=== PATIENT | female | born 2000 | race Caucasian/White ===

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

== ENCOUNTER 2022-06-10 13:25 | Emergency (ER) | payer OTHER, SELFPAY ==
[2022-06-10] VITALS (7 sets, daily range): BP systolic 116–135; BP diastolic 72–90; PULSE 81–90; RESP 16; TEMP 36.6; O2SAT 99–100; BMI 22.4
[2022-06-10] MEDS: sodium chloride 0.9% 1,000 ML 999 ML IV (15:15)
[2022-06-10] MEDS: ondansetron 2 mg/ML SDV 2 mL 4 MG IVP (15:15)
--- NOTE | 2022-06-10 15:29 | W.ED.ABDPA2 ---
HPI - Abdominal Pain General: Chief Complaint: Abdominal Pain Stated Complaint: ETOH Time Seen by Provider: 06/10/22 14:58 Source: patient and family Mode of arrival: ambulatory Limitations: no limitations History of Present Illness: See nursing assessment. Patient with onset of nausea vomiting since 9:00 this morning. She states she was unable to hold fluid down. She is also complaining of bilious emesis and epigastric abdominal pain. She states she felt warm and had some chills. She states she drank alcohol last night and had [employer] food last night she denies any other infectious exposures. She denies any diarrhea. She denies any blood in her stool or melena. She denies any previous abdominal surgeries. She does smoke cigarettes and drinks alcohol socially. She denies any routine medications and no past medical history. She is allergic to sulfa. Associated Symptoms: Reports chills, nausea and vomiting; Denies diarrhea, fever(s), hematochezia and hematemesis Related Data: Date of Last Menstrual Period: 03/10/20 Review of Systems Const: Reports: chills; Denies: fever(s) Eyes: Denies: change in vision ENMT: Denies: throat pain Card: Denies: chest pain or palpitations Resp: Denies: dyspnea or wheezing GI: Reports: abdominal pain, nausea and vomiting; Denies: hematemesis, diarrhea or hematochezia : Denies: flank pain Musc: Denies: neck pain or back pain Skin/Breast: Denies: rash or pruritus Neuro: Denies: headache(s) or numbness in extremities Psych: Denies: anxiety Giorgio/Lymph: Denies: enlarged lymph nodes [facility] ED PFSH: Medical History No pertinent past medical history Social History Smoking and tobacco status: current every day smoker e-cigarettes Alcohol intake: current Alcohol intake frequency: holidays/special occasions only Female Reproductive History: Date of last menstrual period: 03/10/20 Supplemental [facility] Information: Denies any surgical history. Physical Exam Const: COMMON NORMALS: patient oriented x3, no limitations and well nourished GENERAL APPEARANCE: cooperative OTHER: Mild malaise HENMT: COMMON NORMALS: normocephalic and atraumatic HEAD & SCALP: normocephalic and atraumatic FACE & SINUS: normal facial exam Eye: COMMON NORMALS: EOMs intact bilaterally Neck/C-Spine: COMMON NORMALS: full ROM, no lymphadenopathy, supple and no meningeal signs GENERAL: Yes normal visual inspection Lymph: LYMPHATIC: no lymphadenopathy noted Chest: COMMONS NORMALS: normal inspection of the chest and normal palpation of entire chest wall CHEST: No Ecchymosis present and No rash Resp: COMMON NORMALS: normal respiratory effort, No retractions and clear to auscultation bilaterally EFFORT & INSPECTION: No respiratory distress AUSCULTATION: clear to auscultation bilaterally Cardio: COMMON NORMALS: regular rate, regular rhythm and Peripheral pulses 2+ throughout JUGULAR VENOUS DISTENTION: no JVD RATE: regular rate RHYTHM: regular rhythm PERIPHERAL PULSES: Peripheral pulses 2+ throughout GI: COMMON NORMALS: Normal to inspection, nondistended, normoactive bowel sounds present OTHER: Mild epigastric abdominal pain. No guarding or rebound. Normoactive bowel sounds throughout. No hepatosplenomegaly. Negative Condon sign. No lower abdominal pain. : COMMON NORMALS: Yes no CVA tenderness BLADDER/KIDNEY EXAM: Yes no CVA tenderness Back/Pelvis: COMMON NORMALS: no CVA tenderness Extremity: COMMON NORMALS: normal to inspection, full ROM and capillary refill normal Neuro: COMMON NORMALS: patient oriented x3, CN's II-XII intact bilaterally, no focal motor deficits and no sensory deficits noted MENINGEAL SIGNS: Yes no meningeal signs Psych: COMMON NORMALS: mental status grossly normal and Normal thought process present THOUGHT PROCESS: Normal thought process present Skin: COMMON NORMALS: no rashes or lesions noted and no wounds GENERAL SKIN EXAM: no rashes or lesions noted Course Vital Signs: Vital signs: Vital Signs Temperature 97.9 F 06/10/22 13:33 Pulse Rate 90 06/10/22 15:43 Respiratory Rate 16 06/10/22 15:43 Blood Pressure 135/72 06/10/22 15:30 Pulse Oximetry 99 06/10/22 16:00 Oxygen Delivery Me thod 06/10/22 15:43 MDM - Abdominal Pain Medical Decision Making Likely gastritis due to alcohol use. Patient may have viral gastroenteritis. 1700: Patient reexamined. Patient states she feels much better. She states she is ready go home. Patient likely with acute superficial gastritis. Lab Data 06/10/22 15:38 06/10/22 15:38 Labs/Radiology: Laboratory Results WBC 11.6 10^3/uL (4.0-10.0) H 06/10/22 15:38 RBC 5.27 10^6/uL (4.1-5.3) 06/10/22 15:38 Hgb 13.9 g/dL (11.5-15.3) 06/10/22 15:38 Hct 42.4 % (37.0-47.0) 06/10/22 15:38 MCV 80.5 fl (81-99) L 06/10/22 15:38 MCH 26.4 pg (28.0-34.0) L 06/10/22 15:38 MCHC 32.8 g/dL (30.0-36.0) 06/10/22 15:38 RDW 14.6 % (12.1-15.1) 06/10/22 15:38 Plt Count 404 10^3/cmm (130-400) H 06/10/22 15:38 MPV 9.4 fL (7.4-10.4) 06/10/22 15:38 Neut % (Auto) 91.5 % 06/10/22 15:38 Lymph % (Auto) 5.3 % 06/10/22 15:38 [place] % (Auto) 2.7 % 06/10/22 15:38 Eos % (Auto) 0.0 % 06/10/22 15:38 Baso % (Auto) 0.2 % 06/10/22 15:38 Neut # (Auto) 10.65 10^3/uL (1.8-7.7) H 06/10/22 15:38 Lymph # (Auto) 0.6 10^3/uL (0.8-4.8) L 06/10/22 15:38 [place] # (Auto) 0.3 10^3/uL (0.2-0.9) 06/10/22 15:38 Eos # (Auto) 0.0 10^3/uL (0.0-0.8) 06/10/22 15:38 Baso # (Auto) 0.0 10^3/uL (0.0-0.1) 06/10/22 15:38 Nucleated RBC % (auto) 0 % 06/10/22 15:38 Nucleated RBCs # 0.0 /100WBC 06/10/22 15:38 Sodium 139 mmol/L (136-145) 06/10/22 15:38 Potassium 3.6 mmol/L (3.5-5.1) 06/10/22 15:38 Chloride 103 mmol/L (98-107) 06/10/22 15:38 Carbon Dioxide 23 mmol/L (22-29) 06/10/22 15:38 Anion Gap 16.6 (5-19) 06/10/22 15:38 BUN 10 mg/dL (6-20) 06/10/22 15:38 Creatinine 0.6 mg/dL (0.5-0.9) 06/10/22 15:38 GFR Calculation 126.2 mL/min (90-130) 06/10/22 15:38 Glucose 90 mg/dL (65-115) 06/10/22 15:38 Calculated Osmolality 287 mOsm/kg (285-295) 06/10/22 15:38 Calcium 9.0 mg/dL (8.5-10.5) 06/10/22 15:38 Total Bilirubin 0.5 mg/dL (0.15-1.2) 06/10/22 15:38 AST 27 U/L (0-32) 06/10/22 15:38 ALT 24 U/L (0-33) 06/10/22 15:38 Alkaline Phosphatase 93 U/L (35-105) 06/10/22 15:38 Total Protein 7.6 g/dL (6.6-8.7) 06/10/22 15:38 Albumin 4.5 g/dL (3.5-5.2) 06/10/22 15:38 Globulin 3.1 g/dL (1.3-4.6) 06/10/22 15:38 Lipase 16 U/L (13-60) 06/10/22 15:38 HCG, Qual Negative (Negative) 06/10/22 15:38 Urine Color Yellow (Yellow) 06/10/22 16:13 Urine Appearance Hazy (CLEAR) A 06/10/22 16:13 Urine pH 9 (5-7) H 06/10/22 16:13 Ur Specific [place] 1.010 (1.005-1.030) 06/10/22 16:13 Urine Protein Neg (Negative) 06/10/22 16:13 Urine Glucose (UA) Norm (Normal) 06/10/22 16:13 Urine Ketones 2+ (Negative) H 06/10/22 16:13 Urine Blood 3+ (Negative) H 06/10/22 16:13 Urine Nitrate Negative (Negative) 06/10/22 16:13 Urine Bilirubin Neg (Negative) 06/10/22 16:13 Prot Sulfosalicylic Acd Negative (Negative) 06/10/22 16:13 Urine Urobilinogen Neg mg/dL (Negative) 06/10/22 16:13 Ur Leukocyte Esterase Trace (Negative) H 06/10/22 16:13 Urine RBC Rare /hpf (0-2) 06/10/22 16:13 Urine WBC Rare /hpf (0-5) 06/10/22 16:13 Ur Squamous Epith Cells 10-15 /hpf (0-5) H 06/10/22 16:13 Amorphous Sediment Not Reportable 06/10/22 16:13 Urine Bacteria Trace /hpf (NONE) 06/10/22 16:13 Discharge Plan Discharge Patient Disposition: Home Clinical Impression: Acute gastritis without bleeding Qualifiers: Gastritis type: superficial Qualified Code(s): K29.00 - Acute gastritis without bleeding Nausea & vomiting Qualifiers: Vomiting type: bilious vomiting Qualified Code(s): R11.14 - Bilious vomiting Condition: Stable Prescriptions: New omeprazole 40 mg capsule,delayed release(DR/EC) 40 mg PO DAILY Qty: 4 1RF Rx Instructions: For stomach Carafate 1 gram tablet 1 g PO Q6H Qty: 12 2RF Rx Instructions: for stomach ondansetron 4 mg tablet,disintegrating 4 mg PO Q6H PRN (Reason: nausea and vomiting) Qty: 10 1RF Discharge Orders: Discharge ED (Routine); Ordered 06/10/22 Ordered By: Franco Grier Referrals: Niharika Dong, COMMERCIAL CARPENTER [Primary Care Provider] - 1-3 days (as needed) Discharge Diet: Advance as tolerated Discharge Activity: Increase activity as tolerated Patient Instructions: Gastritis (ED), Diet for Stomach Ulcers and Gastritis (ED), Acute Nausea and Vomiting (ED) Activity Restrictions/Additional Instructions: Drink plenty of fluids. Avoid caffeine. Avoid aspirin, naproxen, ibuprofen for least 1 week. Avoid alcohol use. You likely have irritation of the lining of your stomach. Take medication as prescribed. Coding Level of Care Code ED Drum Tester for Nancy Mcpherson
[2022-06-10] MEDS: pantoprazole 40 mg SDV IVP (15:42)
[2022-06-10 15:50] LABS: Basophils % 0.2 %; Hematocrit 42.4 % (37.0-47.0); Hemoglobin 13.9 g/dL (11.5-15.3); Lymphocytes # 0.6 10^3/uL (0.8-4.8); Lymphocytes % 5.3 %; Mean Corpuscular HGB Conc 32.8 g/dL (30.0-36.0); Mean Corpuscular Hemoglobin 26.4 pg (28.0-34.0); Mean Corpuscular Volume 80.5 fl (81-99); Mean Platelet Volume 9.4 fL (7.4-10.4); Monocytes # 0.3 10^3/uL (0.2-0.9); Monocytes % 2.7 %; Neutrophils # 10.65 10^3/uL (1.8-7.7); Neutrophils % 91.5 %; Nucleated Red Blood Cells % 0 %; Platelet Count 404 10^3/cmm (130-400); Red Blood Count 5.27 10^6/uL (4.1-5.3); Red Cell Distribution Width 14.6 % (12.1-15.1); White Blood Count 11.6 10^3/uL (4.0-10.0)
[2022-06-10 16:15] LABS: Alanine Aminotransferase 24 U/L (0-33); Albumin Level 4.5 g/dL (3.5-5.2); Alkaline Phosphatase 93 U/L (35-105); Anion Gap 16.6 (5-19); Aspartate Amino Transferase 27 U/L (0-32); Blood Urea Nitrogen 10 mg/dL (6-20); Carbon Dioxide 23 mmol/L (22-29); Chloride 103 mmol/L (98-107); Globulin 3.1 g/dL (1.3-4.6); Glomerular Filtration Rate 126.2 mL/min (90-130); Glucose 90 mg/dL (65-115); Lipase 16 U/L (13-60); Osmolality Calculated 287 mOsm/kg (285-295); Potassium 3.6 mmol/L (3.5-5.1); Sodium 139 mmol/L (136-145); Total Bilirubin 0.5 mg/dL (0.15-1.2); Total Protein 7.6 g/dL (6.6-8.7)
[2022-06-10 16:36] LABS: HCG, Serum Qual Negative (Negative)
[2022-06-10 16:59] LABS: Urine Appearance Hazy (CLEAR); Urine Color Yellow (Yellow); pH Urine 9 (5-7)
[2022-06-10 17:00] LABS: Bacteria Urine TRACE /hpf; Bilirubin Urine Neg (Negative); Blood Urine 3+ (Negative); Glucose Urine UA Norm (Normal); Ketones Urine 2+ (Negative); Leukocyte Esterase Urine Trace (Negative); Nitrate Urine Negative (Negative); Protein Urine Neg (Negative); RBC Urine RARE /hpf (0-2); Sulfosalicylic Acid Urine Negative (Negative); Urobilinogen Urine Neg (Negative); WBC Urine RARE /hpf (0-5)
== END 2022-06-10 17:31 | disposition home or self-care (01) ==
PROVIDERS: Emergency Provider Family Medicine; PCP Nurse Practitioner
DX: K29.00 Acute gastritis without bleeding (principal); F17.290 Nicotine dependence, other tobacco product, uncomplicated
CPT/HCPCS: 36415; 80053; 81001; 83690; 84703; 85025; 96361; 96374; 96375; 99284; C9113; J2405; J7030

== ENCOUNTER 2024-06-09 22:18 | Emergency (ER) | payer SELFPAY ==
[2024-06-09 22:23] VITALS: BP 130/81; PULSE 88; RESP 18; TEMP 36.7; O2SAT 96; BMI 25.0
--- NOTE | 2024-06-09 23:27 | W.ED.NAVMDI ---
HPI - Nausea/Vomiting/Diarrhea General: Chief complaint: Nausea/Vomiting/Diarrhea Stated complaint: N/V weak SOB Time Seen by Provider: 06/09/24 23:26 History of Present Illness: 24-year-old female who is vomiting diarrhea is for couple days now. Apparently she had a tooth pulled as well. She is feeling weak. No focal abdominal pain. Related Data Previous Rx's ?Medication ?Instructions ?Recorded omeprazole 40 mg capsule,delayed 40 mg PO DAILY #4 caps 06/10/22 release ondansetron 4 mg disintegrating 4 mg PO Q6H PRN nausea and 06/10/22 tablet vomiting #10 tabs sucralfate 1 gram tablet (Carafate) 1 g PO Q6H #12 tabs 06/10/22 ondansetron 8 mg disintegrating 8 mg PO Q6H #14 tabs 06/10/24 tablet promethazine 25 mg rectal 25 mg RI Q6H PRN nausea and 06/10/24 suppository vomiting #12 ea Allergies Allergy/AdvReac Type Severity Reaction Status Date / Time latex Allergy SWELLING Verified 06/10/22 16:20 Sulfa (Sulfonamide Allergy RASH Verified 06/10/22 16:20 Antibiotics) Review of Systems Narrative: Constitutional symptoms: Negative except as documented in HPI. Skin symptoms: Negative except as documented in HPI. Eye symptoms: Negative except as documented in HPI. ENMT symptoms: Negative except as documented in HPI. Respiratory symptoms: Negative except as documented in HPI. Cardiovascular symptoms: Negative except as documented in HPI. Gastrointestinal symptoms: Negative except as documented in HPI. Genitourinary symptoms: Negative except as documented in HPI. Musculoskeletal symptoms: Negative except as documented in HPI. Neurologic symptoms: Negative except as documented in HPI. Psychiatric symptoms: Negative except as documented in HPI. Endocrine symptoms: Negative except as documented in HPI. PFSH ED PFSH: Medical History No pertinent past medical history Social History Smoking and tobacco/nicotine status: current every day tobacco/nicotine user e-cigarettes Alcohol intake: current Alcohol intake frequency: holidays/special occasions only Substance/Drug Use: current Substance/Drug use frequency: daily Female Reproductive History: Date of last menstrual period: 06/08/24 Physical Exam Narrative: EXAM NARRATIVE: General: Alert, no acute distress. Skin: Warm, dry. Head: Normocephalic, atraumatic. Neck: Supple, trachea midline. Eye: Extraocular movements are intact. Ears, nose, mouth and throat: Dry oral mucosa Cardiovascular: Regular, Normal peripheral perfusion. Respiratory: Lungs are clear to auscultation, respirations are non-labored, breath sounds are equal, Symmetrical chest wall expansion. Gastrointestinal: Soft, Nontender, Non distended Musculoskeletal: Normal ROM, no deformity. Neurological: Alert and oriented, No focal neurological deficit observed. Psychiatric: Cooperative, appropriate mood & affect. Course Vital Signs: Vital signs: Vital Signs Temperature 98.0 F 06/09/24 22:23 Pulse Rate 81 06/10/24 01:42 Respiratory Rate 18 06/09/24 22:23 Blood Pressure 122/65 06/10/24 01:42 Pulse Oximetry 99 06/10/24 01:42 Oxygen Delivery Me thod Room Air 06/09/24 22:23 MDM - Nausea/Vomiting/Diarrhea Medical Decision Making Medical decision making: Differential diagnosis for this patient with nausea and vomiting including but not limited to and based on the above HPI, review of systems and physical exam: Urinary tract infection. Appendicitis. Cholecystis. colitis. small bowel obstruction. crohn's flare. pancreatitis. gastritis. peptic ulcer. cyclic vomiting. Viral illness. Influenza. COVID. Orders placed to evaluate differential diagnosis based on the above differential, HPI and physical exam Lab Review: Laboratory results were reviewed and interpreted by myself the emergency room physician. Lab work is unremarkable. No leukocytosis. No anemia. No renal failure. Patient declines COVID and flu swab. I reviewed the patient's medical record. Reexamination: Patient is now tolerating p.o. fluids. Has taken 2 doses of IV Zofran here. Also fluids. Assessment and plan: Gastroenteritis Dehydration ? Normal saline bolus and 2 doses of Zofran. - Discharged home - Discussed plan with patient. Answered any questions. - Evaluation and treatment of this problem were appropriate in the emergency setting. Lab Data 06/09/24 23:43 06/09/24 23:43 Laboratory Results WBC 7.32 10^3/uL (3.29-11.43) 06/09/24 23:43 RBC 5.16 10^6/uL (3.85-5.65) 06/09/24 23:43 Hgb 13.80 g/dL (11.27-16.99) 06/09/24 23:43 Hct 41.7 % (36-47) 06/09/24 23:43 MCV 80.8 fl (85-98) L 06/09/24 23:43 MCH 26.7 pg (27-33) L 06/09/24 23:43 MCHC 33.1 g/dL (30-55) 06/09/24 23:43 RDW 13.9 % (12.1-15.1) 06/09/24 23:43 Plt Count 339 10^3/cmm (157-399) 06/09/24 23:43 MPV 9.3 fL (7.4-10.4) 06/09/24 23:43 Neut % (Auto) 87.3 % 06/09/24 23:43 Lymph % (Auto) 4.8 % 06/09/24 23:43 [place] % (Auto) 6.7 % 06/09/24 23:43 Eos % (Auto) 0.5 % 06/09/24 23:43 Baso % (Auto) 0.3 % 06/09/24 23:43 Neut # (Auto) 6.39 10^3/uL (1.8-7.7) 06/09/24 23:43 Lymph # (Auto) 0.4 10^3/uL (0.8-4.8) L 06/09/24 23:43 [place] # (Auto) 0.5 10^3/uL (0.2-0.9) 06/09/24 23:43 Eos # (Auto) 0.0 10^3/uL (0.0-0.8) 06/09/24 23:43 Baso # (Auto) 0.0 10^3/uL (0.0-0.1) 06/09/24 23: Nucleated RBC % (auto) 0 % 06/09/24 23: Nucleated RBCs # 0.0 /100WBC 06/09/24 23:43 Sodium 139 mmol/L (136-145) 06/09/24 23:43 Potassium 3.5 mmol/L (3.5-5.1) 06/09/24 23:43 Chloride 97 mmol/L (98-107) L 06/09/24 23:43 Carbon Dioxide 22 mmol/L (22-29) 06/09/24 23:43 Anion Gap 23.5 (5-19) H 06/09/24 23:43 BUN 8 mg/dL (6-20) 06/09/24 23:43 Creatinine 0.8 mg/dL (0.5-0.9) 06/09/24 23:43 GFR Calculation 88.9 mL/min (90-130) L 06/09/24 23:43 Glucose 150 mg/dL (65-115) H 06/09/24 23:43 Calculated Osmolality 289 mOsm/kg (285-295) 06/09/24 23:43 Calcium 9.2 mg/dL (8.5-10.5) 06/09/24 23:43 Lipase 17 U/L (13-60) 06/09/24 23:43 No radiology studies performed this visit Discharge Plan Discharge Patient Disposition: Home Clinical Impression: Gastroenteritis, Dehydration Condition: Stable Prescriptions: New promethazine 25 mg suppository 25 mg RI Q6H PRN (Reason: nausea and vomiting) Qty: 12 0RF ondansetron 8 mg tablet,disintegrating 8 mg PO Q6H Qty: 14 0RF Rx Instructions: Take 1/2-1 tab every 6 hours as needed for nausea and vomiting No Action omeprazole 40 mg capsule,delayed release(DR/EC) 40 mg PO DAILY Qty: 4 1RF Rx Instructions: For stomach Carafate 1 gram tablet 1 g PO Q6H Qty: 12 2RF Rx Instructions: for stomach ondansetron 4 mg tablet,disintegrating 4 mg PO Q6H PRN (Reason: nausea and vomiting) Qty: 10 1RF Discharge Orders: Discharge ED (Routine); Ordered 06/10/24 Ordered By: Sonia Crowley Referrals: Niharika Dong, [employer] [Primary Care Provider] - Discharge Diet: Advance as tolerated Discharge Activity: Increase activity as tolerated Patient Instructions: Gastroenteritis (ED), Opioid Safety, Pain Management Activity Restrictions/Additional Instructions: Thank you for choosing [facility] for your healthcare needs today. Please realize this is an emergency room and that we are providing you with a medical screening exam and this may not be complete and all inclusive of all the testing and or work up that you may need to determine your ailment or severity of your illness. You have been screened and evaluated and felt safe for discharge. Health conditions do change or evolve sometimes and as such it is important that you follow up with your Primary Doctor to be re checked, 3-5 days is a general good time frame for follow up. You are always welcome to return to the ED for re assessment if your symptoms are worsening or you have new concerns Print Language: Lithuanian Coding Level of Care Code ED Audience Coordinator for Nancy Mcpherson
[2024-06-09 23:55] LABS: Basophils % 0.3 %; Eosinophils % 0.5 %; Hematocrit 41.7 % (36-47); Lymphocytes # 0.4 10^3/uL (0.8-4.8); Lymphocytes % 4.8 %; Mean Corpuscular HGB Conc 33.1 g/dL (30-55); Mean Corpuscular Hemoglobin 26.7 pg (27-33); Mean Corpuscular Volume 80.8 fl (85-98); Mean Platelet Volume 9.3 fL (7.4-10.4); Monocytes # 0.5 10^3/uL (0.2-0.9); Monocytes % 6.7 %; Neutrophils # 6.39 10^3/uL (1.8-7.7); Neutrophils % 87.3 %; Nucleated Red Blood Cells % 0 %; Platelet Count 339 10^3/cmm (157-399); Red Blood Count 5.16 10^6/uL (3.85-5.65); Red Cell Distribution Width 13.9 % (12.1-15.1); White Blood Count 7.32 10^3/uL (3.29-11.43)
[2024-06-10 00:17] LABS: Anion Gap 23.5 (5-19); Blood Urea Nitrogen 8 mg/dL (6-20); Calcium 9.2 mg/dL (8.5-10.5); Carbon Dioxide 22 mmol/L (22-29); Chloride 97 mmol/L (98-107); Creatinine Clr Calc Pharmacy 106.0379; Glomerular Filtration Rate 88.9 mL/min (90-130); Glucose 150 mg/dL (65-115); Lipase 17 U/L (13-60); Osmolality Calculated 289 mOsm/kg (285-295); Potassium 3.5 mmol/L (3.5-5.1); Sodium 139 mmol/L (136-145)
[2024-06-10] MEDS: ondansetron 2 mg/ML SDV 2 mL 8 MG IVP (00:35)
[2024-06-10] MEDS: sodium chloride 0.9% 1,000 ML 999 ML IV (00:35)
[2024-06-10 00:51] VITALS: PULSE 56; O2SAT 92
[2024-06-10] MEDS: ondansetron 2 mg/ML SDV 2 mL 4 MG IVP (01:33)
[2024-06-10 01:42] VITALS: BP 122/65; PULSE 81; O2SAT 99
== END 2024-06-10 01:39 | disposition home or self-care (01) ==
PROVIDERS: Emergency Provider Emergency Medicine; PCP Nurse Practitioner
DX: K52.9 Noninfective gastroenteritis and colitis, unspecified (principal); E86.0 Dehydration; F17.290 Nicotine dependence, other tobacco product, uncomplicated
CPT/HCPCS: 36415; 80048; 83690; 85025; 96361; 96374; 96376; 99284; J2405; J7030

== ENCOUNTER 2024-06-10 20:16 | Emergency (ER) | payer SELFPAY ==
[2024-06-10] VITALS (8 sets, daily range): BP systolic 98–143; BP diastolic 58–87; PULSE 52–120; RESP 16–17; TEMP 36.4; O2SAT 93–96; BMI 25.0
--- NOTE | 2024-06-10 21:38 | W.ED.NAVMDI ---
HPI - Nausea/Vomiting/Diarrhea General: Chief complaint: Nausea/Vomiting/Diarrhea Stated complaint: puking Blood now Time Seen by Provider: 06/10/24 21:18 Source: patient Mode of arrival: ambulatory Limitations: no limitations History of Present Illness: Patient is a 24-year-old female presents to ED today with a complaint of continued nausea and vomiting. Patient states she initially began having symptoms on Thursday. She was seen yesterday here in the emergency department and given antiemetics to go home with. She states these are not working and she cannot even hold down water without vomiting. At the beginning of her illness she did have some diarrhea Corinne but has not had any today. She is not running fevers. She is not having any abdominal pain. She denies alcohol use or large amounts of anti-inflammatory use. She does smoke marijuana daily but has not over the past few days due to symptoms. MD elicited complaint: nausea and vomiting Onset (ago): day(s) Associated nausea: Yes Associated abdominal pain: No Location of pain: None Exacerbating factors: eating Associated symtoms: Reports nausea; Denies chest pain, dizziness, dysuria, fatigue, headache(s) or malaise Related Data Previous Rx's ?Medication ?Instructions ?Recorded omeprazole 40 mg capsule,delayed 40 mg PO DAILY #4 caps 06/10/22 release sucralfate 1 gram tablet (Carafate) 1 g PO Q6H #12 tabs 06/10/22 lorazepam 1 mg tablet (Ativan) 1 mg PO Q12H PRN nausea and 06/10/24 vomiting #10 tabs olanzapine 5 mg tablet (Zyprexa) 5 mg PO DAILY PRN nausea/vomiting 06/10/24 #5 tabs Allergies Allergy/AdvReac Type Severity Reaction Status Date / Time latex Allergy SWELLING Verified 06/10/22 16:20 Sulfa (Sulfonamide Allergy RASH Verified 06/10/22 16:20 Antibiotics) Review of Systems Const: Denies: fever(s), chills, body aches, fatigue or malaise Card: Denies: chest pain Resp: Denies: dyspnea GI: Reports: nausea and vomiting; Denies: abdominal pain, hematemesis or diarrhea : Denies: flank pain, difficulty voiding, dysuria, urinary frequency, urinary urgency or urinary hesitancy Musc: Denies: neck pain, back pain, extremity pain, joint swelling or joint redness Skin/Breast: Denies: rash Neuro: Denies: headache(s), numbness in extremities, weakness in extremities, sensory changes or dizziness PFSH ED PFSH: Medical History No pertinent past medical history Social History Smoking and tobacco/nicotine status: current every day tobacco/nicotine user e-cigarettes Alcohol intake: current Alcohol intake frequency: holidays/special occasions only Substance/Drug Use: current Substance/Drug use frequency: daily Physical Exam Const: COMMON NORMALS: no acute distress, average body habitus, patient oriented x3, no limitations, healthy appearing, alert and well nourished GENERAL APPEARANCE: cooperative and anxious Eye: COMMON NORMALS: no scleral icterus Resp: COMMON NORMALS: normal respiratory effort and clear to auscultation bilaterally AUSCULTATION: clear to auscultation bilaterally Cardio: COMMON NORMALS: regular rate and regular rhythm RATE: regular rate RHYTHM: regular rhythm GI: COMMON NORMALS: Normal to inspection, nondistended, normoactive bowel sounds present, Soft to palpation, non-tender, No hepatosplenomegaly present and no masses PALPATION: Yes Soft to palpation and Yes No hepatosplenomegaly present : COMMON NORMALS: Yes no CVA tenderness BLADDER/KIDNEY EXAM: Yes no CVA tenderness Back/Pelvis: COMMON NORMALS: no CVA tenderness Neuro: COMMON NORMALS: patient oriented x3 SENSORIUM/ORIENTATION: Yes alert Course Vital Signs: Vital signs: Vital Signs Temperature 97.6 F 06/10/24 20:23 Pulse Rate 70 06/10/24 23:18 Respiratory Rate 16 06/10/24 20:23 Blood Pressure 114/71 06/10/24 23:18 Pulse Oximetry 95 06/10/24 23:15 Oxygen Delivery Me thod Room Air 06/10/24 20:23 MDM - Nausea/Vomiting/Diarrhea Medical Decision Making Patient here for continued nausea and vomiting. She has been trying oral promethazine and Zofran as well as promethazine suppositories all without any relief of her symptoms. She was initially given IV Zofran here without much relief. She failed oral challenge. There is some concern for possible hyperemesis cannabis syndrome/cannabis withdrawal as she is a habitual user and has not used over the past 4 days. She was given IV Ativan and Haldol here with significant improvement of her symptoms and is now holding down hydration. She was also given a liter of IV fluids. Her blood work overall is nonactionable. Potassium was mildly low. Gap of 23.3 that has not changed much from her last visit. She is positive for Influenza A. Certainly this could be contributing. She is outside the therapeutic window for Tamiflu. Will try treating her nausea and vomiting at home with Ativan and Zyprexa as she has failed to improve with standard antiemetics. Return to ED precautions discussed. Medical Records I reviewed the patient's medical records. Lab Data I reviewed the patient's lab results. 06/10/24 21:30 06/10/24 21:30 Laboratory Results WBC 4.37 10^3/uL (3.29-11.43) 06/10/24 21: RBC 5.64 10^6/uL (3.85-5.65) 06/10/24 21: Hgb 15.00 g/dL (11.27-16.99) 06/10/24 21: Hct 45.2 % (36-47) 06/10/24 21: MCV 80.1 fl (85-98) L 06/10/24 21: MCH 26.6 pg (27-33) L 06/10/24 21: MCHC 33.2 g/dL (30-55) 06/10/24 21: RDW 14.0 % (12.1-15.1) 06/10/24: Plt Count 355 10^3/cmm (157-399) 06/10/24 21: MPV 9.3 fL (7.4-10.4) 06/10/24 21: Neut % (Auto) 51.7 % 06/10/24 21: Lymph % (Auto) 25.4 % 06/10/24 21: [place] % (Auto) 22.0 % 06/10/24 21: Eos % (Auto) 0.9 % 06/10/24: Baso % (Auto) 0.0 % 06/10/24: Neut # (Auto) 2.26 10^3/uL (1.8-7.7) 06/10/24 21:30 Lymph # (Auto) 1.1 10^3/uL (0.8-4.8) 06/10/24 21:30 [place] # (Auto) 1.0 10^3/uL (0.2-0.9) H 06/10/24 21:30 Eos # (Auto) 0.0 10^3/uL (0.0-0.8) 06/10/24: Baso # (Auto) 0.0 10^3/uL (0.0-0.1) 06/10/24 21:30 Nucleated RBC % (auto) 0 % 06/10/24: Nucleated RBCs # 0.0 /100WBC 06/10/24:30 Sodium 137 mmol/L (136-145) 06/10/24 21: Potassium 3.3 mmol/L (3.5-5.1) L 06/10/24: Chloride 96 mmol/L (98-107) L 06/10/24: Carbon Dioxide 21 mmol/L (22-29) L 06/10/24 21:30 Anion Gap 23.3 (5-19) H 06/10/24 21:30 BUN 7 mg/dL (6-20) 06/10/24 21: Creatinine 0.9 mg/dL (0.5-0.9) 06/10/24 21:30 GFR Calculation 77.6 mL/min (90-130) L 06/10/24: Glucose 102 mg/dL (65-115) 06/10/24 21: Calculated Osmolality 282 mOsm/kg (285-295) L 06/10/24: Calcium 9.3 mg/dL (8.5-10.5) 06/10/24 21: Total Bilirubin 0.4 mg/dL (0.15-1.2) 06/10/24: AST 30 U/L (0-32) 06/10/24 21:30 ALT 22 U/L (0-33) 06/10/24 21:30 Alkaline Phosphatase 98 U/L (35-105) 06/10/24 21: Total Protein 8.3 g/dL (6.6-8.7) 02/14/25 21:30 Albumin 4.2 g/dL (3.5-5.2) 06/10/24 21:30 Globulin 4.1 g/dL (1.3-4.6) 06/10/24 21:30 Lipase 27 U/L (13-60) 06/10/24 21:30 HCG, Qual Negative (Negative) 06/10/24 21:30 Coronavirus (PCR) Negative (Negative) 06/10/24 22:08 Influenza A (PCR) Positive (Negative) 06/10/24 22:08 Influenza Type B (PCR) Negative (Negative) 06/10/24 22:08 RSV (PCR) Negative (Negative) 06/10/24 22:08 No radiology studies performed this visit Discharge Plan Discharge Patient Disposition: Home Clinical Impression: Influenza A Nausea and vomiting Qualifiers: Vomiting type: unspecified Qualified Code(s): R11.2 - Nausea with vomiting, unspecified Condition: Stable Prescriptions: New lorazepam [Ativan] 1 mg tablet 1 mg PO Q12H PRN (Reason: nausea and vomiting) Qty: 10 0RF olanzapine [Zyprexa] 5 mg tablet 5 mg PO DAILY PRN (Reason: nausea/vomiting) Qty: 5 0RF Discontinued promethazine 25 mg suppository 25 mg MT Q6H PRN (Reason: nausea and vomiting) Qty: 12 0RF ondansetron 8 mg tablet,disintegrating 8 mg PO Q6H Qty: 14 0RF Rx Instructions: Take 1/2-1 tab every 6 hours as needed for nausea and vomiting ondansetron 4 mg tablet,disintegrating 4 mg PO Q6H PRN (Reason: nausea and vomiting) Qty: 10 1RF No Action omeprazole 40 mg capsule,delayed release(DR/EC) 40 mg PO DAILY Qty: 4 1RF Rx Instructions: For stomach Carafate 1 gram tablet 1 g PO Q6H Qty: 12 2RF Rx Instructions: for stomach Discharge Orders: Discharge ED (Routine); Ordered 06/10/24 Ordered By: Bushra Escamilla Referrals: Niharika Dong, [employer] [Primary Care Provider] - Patient Instructions: Influenza (DC) Activity Restrictions/Additional Instructions: As we discussed, you are positive for influenza A. You are outside the treatment window for Tamiflu. We discussed how your conventional antiemetics are not helping with your nausea and vomiting at home. We also spoke about a potential component of hyperemesis cannabis syndrome/cannabis withdrawal as you have not used in several days and you are a habitual user. We will try to treat you nausea and vomiting at home with Ativan and Zyprexa. Please follow-up with your primary care provider early next week for reevaluation. You may return to the emergency department at anytime for any further concerns you may have. Print Language: Surinamese Coding Level of Care Code ED Lead Coater for Nancy Mcpherson
[2024-06-10 21:45] LABS: Eosinophils % 0.9 %; Hematocrit 45.2 % (36-47); Lymphocytes # 1.1 10^3/uL (0.8-4.8); Lymphocytes % 25.4 %; Mean Corpuscular HGB Conc 33.2 g/dL (30-55); Mean Corpuscular Hemoglobin 26.6 pg (27-33); Mean Corpuscular Volume 80.1 fl (85-98); Mean Platelet Volume 9.3 fL (7.4-10.4); Neutrophils # 2.26 10^3/uL (1.8-7.7); Neutrophils % 51.7 %; Nucleated Red Blood Cells % 0 %; Platelet Count 355 10^3/cmm (157-399); Red Blood Count 5.64 10^6/uL (3.85-5.65); White Blood Count 4.37 10^3/uL (3.29-11.43)
[2024-06-10 22:02] LABS: Alanine Aminotransferase 22 U/L (0-33); Albumin Level 4.2 g/dL (3.5-5.2); Alkaline Phosphatase 98 U/L (35-105); Anion Gap 23.3 (5-19); Aspartate Amino Transferase 30 U/L (0-32); Blood Urea Nitrogen 7 mg/dL (6-20); Calcium 9.3 mg/dL (8.5-10.5); Carbon Dioxide 21 mmol/L (22-29); Chloride 96 mmol/L (98-107); Creatinine Clr Calc Pharmacy 94.2559; Globulin 4.1 g/dL (1.3-4.6); Glomerular Filtration Rate 77.6 mL/min (90-130); Glucose 102 mg/dL (65-115); HCG, Serum Qual Negative (Negative); Lipase 27 U/L (13-60); Osmolality Calculated 282 mOsm/kg (285-295); Potassium 3.3 mmol/L (3.5-5.1); Sodium 137 mmol/L (136-145); Total Bilirubin 0.4 mg/dL (0.15-1.2); Total Protein 8.3 g/dL (6.6-8.7)
[2024-06-10] MEDS: ondansetron 2 mg/ML SDV 2 mL 4 MG IVP (22:04)
[2024-06-10] MEDS: LORazepam 2 mg/mL INJ 1 mL 1 MG IVP (22:44)
[2024-06-10] MEDS: sodium chloride 0.9% 1,000 ML 999 ML IV (22:46)
[2024-06-10] MEDS: haloperidol inj 5 mg/mL INJ 1 mL 2.5 MG IVP (23:12)
[2024-06-10 23:25] LABS: Influenza A POSITIVE (Negative); Influenza B NEGATIVE (Negative); Respiratory Syncytial Virus Ce NEGATIVE (Negative); SARS-CoV-2 PCR NEGATIVE (Negative)
[2024-06-11] VITALS: BP 94/68; BP 99/64; PULSE 73; PULSE 75; RESP 18; O2SAT 93
== END 2024-06-11 00:18 | disposition home or self-care (01) ==
PROVIDERS: Emergency Provider Physician Assistant; PCP Nurse Practitioner
DX: J10.1 Influenza due to other identified influenza virus with other respiratory manifestations (principal); R11.2 Nausea with vomiting, unspecified; Z11.52 Encounter for screening for COVID-19; F17.290 Nicotine dependence, other tobacco product, uncomplicated
CPT/HCPCS: 36415; 80053; 83690; 84703; 85025; 87637; 96374; 96375; 99284; J1630; J2060; J2405; J7030